=== PATIENT | female | born 1970 | race Caucasian/White ===

== ENCOUNTER 2018-08-05 05:21 | Day surgery (SDC) | payer OTHER ==
[2018-08-04 11:33] VITALS: BMI 27.4
[2018-08-05] MEDS ORDERED: IBUPROFEN 800 MG/8 ML IJ IVPB PRN (10:02)
--- NOTE | 2018-08-05 10:03 | HP ---
History & Physical Update - History History: No Change - Physical Physical: No Change - Assessment Assessment: No Change - Plan Plan: No Change (see h&p from 08/03/18)
[2018-08-05] MEDS ORDERED: LACTATED RINGERS SOLUTION 1,000 ML IV SCH ×2 (10:15→13:00)
[2018-08-05] MEDS ORDERED: MIDAZOLAM HCL 2 MG/2 ML SINGLE DOSE VIAL ONE (11:36)
[2018-08-05] MEDS ORDERED: LIDOCAINE HCL/PF 2% SDV 5ML VIAL ONE ×2 (11:38→12:05)
[2018-08-05] MEDS ORDERED: SUCCINYLCHOLINE CHLORIDE 200 MG/10 ML VIAL ONE (11:38)
[2018-08-05] MEDS ORDERED: PROPOFOL 20 ML ONE ×3 (11:38→11:54)
[2018-08-05] MEDS ORDERED: DEXAMETHASONE SOD PHOSPHATE 4 MG/1 ML VIAL ONE ×2 (11:39→12:05)
[2018-08-05] MEDS ORDERED: ONDANSETRON 4 MG/2 ML VIAL ONE ×2 (11:39→12:05)
[2018-08-05] MEDS ORDERED: ROCURONIUM BROMIDE 50 MG/5 ML VIAL ONE (12:04)
[2018-08-05] MEDS ORDERED: KETOROLAC TROMETHAMINE 30 MG/1 ML VIAL ONE (12:05)
[2018-08-05] MEDS ORDERED: ONDANSETRON 4 MG/2 ML VIAL IVPUSH PRN (12:48)
[2018-08-05] MEDS ORDERED: oxyCODONE HCL 5 MG TABLET PO PRN ×2 (12:48)
[2018-08-05 13:38] VITALS: TEMP 98
[2018-08-05 14:52] VITALS: BP 132/70; PULSE 70
--- NOTE | 2018-08-06 19:35 | OP ---
Operative Note - Note: Operative Date: 08/05/18 Pre-Operative Diagnosis: AUB, endocervical polyp Operation: hysteroscopic myomectomy and polypectomy, suction D&C Findings: multiple intrauterine polyps Post-Operative Diagnosis: Same as Pre-op (with endometrial polyps) Surgeon: Namita Peña Anesthesiologist/LEARNING ENGINEER: Omar Mario Anesthesia: General Specimens Removed: endometrial curettings, endometrial polyps Estimated Blood Loss (mls): 10 Operative Report Dictated: Yes
--- NOTE | 2018-08-07 12:52 | PATH ---
Surgical Pathology Report Patient Name: LORETA WHEELER [facility]. Rec. #: [id number] /Age/Gender: 1970 (Age: 47) / F Account: [id number] Location: [facility] Taken: 08/05/2018 Received: 08/06/2018 Reported: 08/07/2018 Physicians: Namita Peña M.D. Specimen(s) Received ENDOMETRIUM TISSUE/ POLYPS Clinical History Leiomyoma of uterus Final Diagnosis ENDOMETRIAL TISSUE/POLYPS, HYSTEROSCOPIC MYOMECTOMY, DILATION AND CURETTAGE: LARGE SMOOTH MUSCLE FRAGMENT CONSISTENT WITH LEIOMYOMA. POLYPOID FRAGMENTS OF ENDOMETRIUM WITH INACTIVE GLANDS AND HYPERPLASTIC DECIDUALIZED STROMA SUGGESTIVE OF EXOGENOUS HORMONE EFFECT. SECRETORY ENDOMETRIUM. BENIGN CERVICAL TISSUE. Electronically Signed Tammy Ludwig M.D. Gross Description Received in formalin labeled "endometrial tissue/polyps," is a 4.3 x 3.0 x 0.4 cm aggregate of florian-cartwright soft tissue fragments. The formalin is filtered and the specimen is entirely submitted in 2 cassettes. /08/06/2018 [facility]/08/06/2018
--- NOTE | 2018-08-12 13:15 | OP ---
DATE OF OPERATION: 08/05/2018 PREOPERATIVE DIAGNOSIS: Abnormal uterine bleeding and intracervical polyps. POSTOPERATIVE DIAGNOSIS: Abnormal uterine bleeding and intracervical polyps, plus intrauterine polyps, and fibroids. PROCEDURE: Hysteroscopic myomectomy, suction dilatation and curettage. SURGEON: Namita Peña MD ANESTHESIA: General by Dr. Omar Mario. ESTIMATED BLOOD LOSS: 10 mL. COMPLICATIONS: None. SPECIMENS REMOVED: Endometrial curettings and endometrial polyps. DISPOSITION: Stable to PACU. BRIEF HISTORY AND PROCEDURE: Patient is a 47-year-old female who had been seen in the office with complaints of long, heavy, painful periods. An ultrasound examination was found to have what appeared to be a cervical polyp. Patient elected to undergo a diagnostic hysteroscopy and possible resection of polyps and fibroids and a suction dilatation and curettage. The patient was then admitted to [facility] on August 05, 2018. Consents for the procedure were confirmed, which had signed in the office prior. She was taken back to the operating room, given general anesthesia, and placed in the dorsal lithotomy position. She was prepped and draped in the usual sterile fashion. A hard time-out was performed. A speculum was placed inside the vagina. The anterior lip of the cervix was grasped with a tenaculum, and the cervix was dilated to accommodate an operative hysteroscope, which was advanced to the fundus of the uterus. Multiple intrauterine polyps were appreciated. Using the suction device, the polyps and intrauterine tissue were resected in several passes. Suction dilatation and curettage was performed to remove all the detached tissue. A final look with the hysteroscope revealed no remaining intrauterine tissue and no evidence of uterine perforation. All instruments were then removed from the vagina. Specimens were sent to Pathology for permanent evaluation. Sponge and instrument counts were reported to be correct. The patient tolerated the procedure well, recovering in stable condition in the PACU after the procedure. NAMITA PEÑA DO /[id number]
== END 2018-08-05 14:54 | disposition home or self-care (01) ==
LOC: JASU-SURG 05:21
PROVIDERS: ATTEND Obstetrics & Gynecology
PROC: 0UB98ZZ Excision of Uterus, Via Natural or Artificial Opening Endoscopic (ICD-10-PCS; principal; 2018-08-05 11:00)
PROC: 0UDB7ZX Extraction of Endometrium, Via Natural or Artificial Opening, Diagnostic (ICD-10-PCS; 2018-08-05 11:00)
PROC: 0UJD8ZZ Inspection of Uterus and Cervix, Via Natural or Artificial Opening Endoscopic (ICD-10-PCS; 2018-08-05 11:00)
DX: N93.9 Abnormal uterine and vaginal bleeding, unspecified (principal); N84.1 Polyp of cervix uteri; D25.9 Leiomyoma of uterus, unspecified
CPT/HCPCS: 88305-TC; 94760